=== PATIENT | female | born 1985 | race Two or more races ===

== ENCOUNTER 2022-05-09 16:47 | Emergency (ER) | payer MEDICAID, OTHER ==
[~2022-05-09] VITALS: Ht 152.4 cm; Wt 56.8 kg
[2022-05-09 17:46] LABS: Basophils # (auto) 0 10 ^3/uL (0-0.2); Basophils % (auto) 0.5 % (0.0-2.0); Eosinophils # (auto) 0 10 ^3/uL (0-0.8); Eosinophils % (auto) 0.5 % (0.0-7.0); Hematocrit 39.9 % (36.0-46.0); Lymphocytes # (auto) 2.2 10 ^3/uL (0.4-5.4); Lymphocytes % (auto) 29.4 % (10.0-50.0); Mean Corpuscular Hemoglobin 29.2 pg (28.0-32.0); Mean Corpuscular Hgb Conc. 32.6 g/dL (32.0-36.0); Mean Corpuscular Volume 89.5 fL (80.0-100.0); Monocytes # (auto) 0.8 10 ^3/uL (0-1.3); Neutrophils # (auto) 4.5 10 ^3/uL (1.6-8.6); Neutrophils % (auto) 59.6 % (37.0-80.0); Red Blood Cells 4.46 10^6/uL (4.0-5.20); Red Cell Distribution Width 12.9 % (11.8-14.3); White Blood Cell 7.5 10^3/uL (4.4-10.8)
[2022-05-09 18:00] LABS: Albumin 4.2 g/dL (3.4-5.0); BUN/Creatinine Ratio 16.7; Calcium 8.9 mg/dL (8.5-10.1); Potassium 3.6 mmol/L (3.5-5.1)
[2022-05-09 18:08] LABS: Bilirubin, Total 0.4 mg/dL (0.2-1.0); Total Protein 7.5 g/dL (6.4-8.2)
[2022-05-09 20:15] VITALS: BP 125/78
== END 2022-05-09 20:22 | disposition home or self-care (01) ==
LOC: ER 16:47
DX: R07.89 Other chest pain (principal); F12.10 Cannabis abuse, uncomplicated; Z98.51 Tubal ligation status; Z88.6 Allergy status to analgesic agent
CPT/HCPCS: 36415; 71045; 80053; 84484; 85025; 85379; 93005